=== PATIENT | female | born 1955 | race Caucasian/White ===

== ENCOUNTER 2019-04-24 14:51 | Emergency (ER) | payer MEDICARE ==
[~2019-04-24] VITALS: Ht 175.3 cm; Wt 104.7 kg
[2019-04-24 14:56] VITALS: BP 182/91; PULSE 111; RESP 18; Ht 175.3 cm; Wt 104.7 kg
--- NOTE | 2019-04-24 15:09 | ERD ---
ER Documentation Chief Complaint Chief Complaint red eye this am HPI The patient is a 63-year-old female, presenting to the ER because she woke up this morning noticed redness on her right eye laterally, denies blurred vision/pain, denies similar symptoms previously, denies headache, neck pain, chest pain, dyspnea, abdominal pain, vomiting. She complains of chronic right shoulder pain and she is awaiting physical therapy and is requesting a toradol injection for the pain Past medical history: Depression Past surgical history: Back surgery ROS All systems reviewed and are negative except as per history of present illness. Allergies Allergies: Coded Allergies: Penicillins (Unverified Allergy, Unknown, i , 04/24/19) acetaminophen (Unverified Allergy, Unknown, 04/24/19) i gabapentin (Unverified Allergy, Unknown, i , 04/24/19) Physical Exam Vitals Vital Signs Date Temp Pulse Resp B/P (MAP) Pulse Ox O2 O2 Flow FiO2 Time Delivery Rate 04/24/19 98.6 111 18 182/91 96 14:56 (121) Physical Exam Const: No acute distress. Head: Atraumatic. Eyes: Small lateral subconjunctival hemorrhage of the right eye, no eye entrapment, no nystagmus ENT: Normal External Ears, Nose and Mouth. Neck: Full range of motion. No meningismus. Resp: Clear to auscultation bilaterally. Cardio: Regular rate and rhythm. Abd: Soft, non distended, normal bowel sounds, non tender. Skin: No petechiae or rashes. Back: No midline or flank tenderness. Ext: No cyanosis, or edema. Right shoulder is with full range of mot ion Neur: Awake and alert. No focal deficit Psych: Normal Mood and Affect. Results 24 hrs Current Medications Medications Dose Sig/Justin Start Time Status Last (Trade) Ordered Route PRN Stop Time Admin Dose Reason Admin Ketorolac 60 mg ONCE STAT 04/24/19 DC 04/24/19 Tromethamine IM 15:16 15:29 (Toradol) 04/24/19 15:17 Procedures/MDM MEDICAL MAKING DECISION: The patient is a 63-year-old female, presenting with acute right subconjunctival hemorrhage, chronic right shoulder pain, is stable for outpatient follow-up. She was treated with Toradol 60 mg IM for her shoulder pain with good response The differential diagnoses considered include but are not limited to conjunctivitis, foreign body, corneal abrasion Departure Diagnosis: Primary Impression: Subconjunctival hemorrhage of right eye Additional Impression: Right shoulder pain Condition: Good Comments The patient's blood pressure was elevated (>120/80) but appears stable without evidence of hypertension emergency or urgency. The patient was counseled about the risks of hypertension and urged to pursue outpatient monitoring and therapy within a week with their primary care physician. I discussed the findings with the patient. I advised the patient to follow-up with the primary physician in about 2-3 days, sooner if needed and return if any concern. Disclaimer: Inadvertent spelling and grammatical errors are likely due to EHR/dictation software use and do not reflect on the overall quality of patient care. Also, please note that the electronic time recorded on this note does not necessarily reflect the actual time of the patient encounter. SHAR MAC MD April 24, 2019 15:09
[2019-04-24] MEDS ORDERED: KETOROLAC 60 MG INJ IM STA (15:16)
[2019-04-24] MEDS ORDERED: TRAM50TA2 PO ×2 (20:05)
== END 2019-04-24 15:54 | disposition home or self-care (01) ==
LOC: E/R 14:51
DX: H11.31 Conjunctival hemorrhage, right eye (principal); M25.511 Pain in right shoulder
CPT/HCPCS: 96372; 99284; J1885

== ENCOUNTER 2019-04-24 18:58 | Emergency (ER) | payer MEDICARE ==
[~2019-04-24] VITALS: Ht 175.3 cm; Wt 104.0 kg
[2019-04-24 19:41] VITALS: Ht 175.3 cm; Wt 104.0 kg
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
[2019-04-24] MEDS ORDERED: ALPRAZOLAM 0.25 MG TAB PO ONE (20:00)
[2019-04-24] MEDS ORDERED: TRAM50TA2 PO ×2 (20:05)
[2019-04-24 21:42] VITALS: BP 168/83; PULSE 83; RESP 20
== END 2019-04-24 22:43 | disposition home or self-care (01) ==
LOC: E/R 18:58
DX: M25.511 Pain in right shoulder (principal)
CPT/HCPCS: 99283